=== PATIENT | male | born 1985 | race Two or more races ===

== ENCOUNTER 2019-01-13 15:22 | Emergency (ER) | payer OTHER ==
[~2019-01-13] VITALS: Ht 170.2 cm; Wt 70.3 kg
[2019-01-13 16:38] VITALS: BP 141/98
== END 2019-01-13 17:26 | disposition home or self-care (01) ==
LOC: ER 15:22
DX: S33.5XXA Sprain of ligaments of lumbar spine, initial encounter (principal); V43.52XA Car driver injured in collision with other type car in traffic accident, initial encounter; Y93.I9 Activity, other involving external motion; Y92.410 Unspecified street and highway as the place of occurrence of the external cause; Y99.8 Other external cause status